=== PATIENT | male | born 1995 | race Caucasian/White ===

== ENCOUNTER 2022-08-11 21:30 | Emergency (ER) | payer OTHER ==
[~2022-08-11] VITALS: Ht 180.3 cm; Wt 63.5 kg
--- NOTE | 2022-08-12 00:05 | NUR ---
Dr. Briscoe at bedside. MSE in progress.
[2022-08-12] MEDS ORDERED: LIDOCAINE HCL 2% 20 ML VIAL TP ONE (00:15)
[2022-08-12] MEDS ORDERED: TDAP DIPH,PERTUSS,TET VAC/PF 0.5 ML DISP.SYRIN IM ONE ×2 (00:15→00:18)
[2022-08-12] MEDS ORDERED: LIDOCAINE HCL 2% 20 ML VIAL ONE (00:18)
[2022-08-12] MEDS ORDERED: HYDR-3972 PO (00:54)
[2022-08-12] MEDS ORDERED: BACITRACIN ZINC OINT 15 GM TUBE ONE (00:59)
[2022-08-12] MEDS ORDERED: BACITRACIN ZINC OINT 15 GM TUBE TOP ONE (01:00)
--- NOTE | 2022-08-12 01:03 | NUR ---
Patient discharged to home in stable condition. A/O x 4. NAD noted. All belongings with patient. Written and verbal after care instructions given. Patient verbalizes understanding of instructions. Stressed follow up or return to ER for worsening s/s.
[2022-08-12 01:14] VITALS: BP 112/86
== END 2022-08-12 01:03 | disposition home or self-care (01) ==
LOC: ER 21:30
DX: S61.212A Laceration without foreign body of right middle finger without damage to nail, initial encounter (principal); W25.XXXA Contact with sharp glass, initial encounter; Y92.511 Restaurant or cafe as the place of occurrence of the external cause; Y99.0 Civilian activity done for income or pay; Z88.0 Allergy status to penicillin
CPT/HCPCS: 12001; 99283; 90715; 90471; J3490; A4663